=== PATIENT | female | born 1970 | race Caucasian/White ===

== ENCOUNTER 2017-02-18 09:29 | Emergency (ER) | payer SELFPAY ==
[2017-02-18] MEDS ORDERED: Morphine INJ* 4 MG/ML 1 ML SYRINGE IV ONE ×2 (09:49→10:55)
[2017-02-18] MEDS ORDERED: Ondansetron INJ* 2 MG/ML VIAL IV ONE (09:49)
[2017-02-18 10:01] LABS: Hematocrit 44 % (35-47); Hemoglobin 14.8 g/dl (12.0-16.0); Mean Corpuscular HGB Conc 34 g/dl (31-36); Mean Corpuscular Hemoglobin 29 pg (27-31); Mean Corpuscular Volume 85 fL (80-97); Mean Platelet Volume 9 um3 (7.4-10.4); Red Blood Count 5.18 10^6/ul (4.0-5.4); Red Cell Distribution Width 13 % (10.5-15); White Blood Count 6.5 10^3/ul (3.5-10.8)
[2017-02-18 10:28] LABS: Albumin 4.2 g/dL (3.2-5.2); BUN/Creatinine Ratio 26.9 (8-20); Calcium 9.6 mg/dL (8.6-10.3); EGFR African American 120.8 (>60); EGFR Non-African American 93.9 (>60); Globulin 3.2 g/dL (2-4); Potassium 3.3 mmol/L (3.5-5.0); Total Bilirubin 0.5 mg/dL (0.2-1.0); Total Protein 7.4 g/dL (6.4-8.9)
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
[2017-02-18 14:16] VITALS: BP 109/63
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
== END 2017-02-18 14:15 | disposition home or self-care (01) ==
LOC: ED 09:29
DX: M25.472 Effusion, left ankle (principal); S22.31XA Fracture of one rib, right side, initial encounter for closed fracture; S20.219A Contusion of unspecified front wall of thorax, initial encounter; R51 Headache; R07.9 Chest pain, unspecified; V49.9XXA Car occupant (driver) (passenger) injured in unspecified traffic accident, initial encounter; Y93.9 Activity, unspecified; Y92.9 Unspecified place or not applicable
CPT/HCPCS: 36415; 70450; 71250; 72125; 74176; 80053; 83605; 85025; 93005; 99283; J2270; J2405